=== PATIENT | female | born 1965 | race African-American/Black ===

== ENCOUNTER 2018-02-04 16:08 | Emergency (ER) | payer OTHER ==
[2018-02-04] MEDS ORDERED: Sodium Chloride 0.9% 1,000 ML IV ONE (16:52)
[2018-02-04] MEDS ORDERED: Morphine Sulfate 2 mg/mL 1mL Syr IVP ONE (16:52)
[2018-02-04 17:27] LABS: EOSINOPHILE ABSOLUTE 0.1 Th/cmm (0.1-0.4); HEMOGLOBIN 9.9 gm/dL (12-16); LYMPHOCYTE ABSOLUTE 1.4 Th/cmm (1.5-3.0); WHITE BLOOD COUNT 4.2 Th/cmm (4.8-10.8)
[2018-02-04 17:30] LABS: % BASOPHILS 0.6 % (0.0-2.0); % EOSINOPHILS 2.7 % (0.0-5.0); % LYMPHOCYTES 32.3 % (20.0-50.0); % MONOCYTES 11.2 % (2.0-10.0); % NEUTROPHILS 53.2 % (40.0-80.0); HEMATOCRIT 30.5 % (41.0-60); MEAN CELL VOLUME 79.4 fl (81-100); MEAN CORPUSCULAR HEMOGLOBIN 25.7 pg (27.0-31.0); MEAN CORPUSCULAR HGB CONC 32.4 pg (28.0-36.0); MEAN PLATELET VOLUME 8.6 fl; MONOCYTE ABSOLUTE 0.5 Th/cmm (0.3-1.0); NEUTROPHILE ABSOLUTE 2.2 Th/cmm (1.8-8.0); PLATELET COUNT 165 Th/cmm (150-400); RED BLOOD COUNT 3.84 Mil/cmm (3.80-5.10); RED CELL DISTRIBUTION WIDTH 19.7 % (11.5-20.0)
[2018-02-04] MEDS ORDERED: Morphine Sulfate 2 mg/mL 1mL Syr ONE (17:32)
--- NOTE | 2018-02-04 17:35 | ED Physician Chart ---
ED Chief Complaint/HPI - Patient Information Date Seen:: 02/04/18 Time Seen:: 16:25 Chief Complaint:: Abdominal Pain History of Present Illness:: onset x 6 days of intermittent, crampy Abd. Pain, N/V/D; pt denies trauma, H/As , S/T, neck pain, cough, C/P, SOB, A/C, fever, chills, or urinary s/s Allergies:: Allergies Allergy/AdvReac Type Severity Reaction Status Date / Time No Known Allergies Allergy Verified 02/04/18 16:25 Vitals:: Vital Signs - 8 hr 02/04/18 16:26 Temp 98.8 F HR 85 RR 16 BP 134/73 O2 Sat % 100 Historian:: Patient Review:: Nurse's Note Reviewed <Arsalan Zimmerman - Last Filed: 02/04/18 18:25> - Patient Information Allergies:: Allergies Allergy/AdvReac Type Severity Reaction Status Date / Time No Known Allergies Allergy Verified 02/04/18 16:25 Vitals:: Vital Signs - 8 hr 02/04/18 02/04/18 02/04/18 16:26 17:00 18:00 Temp 98.8 F 97.3 F 97.8 F HR 85 80 88 RR 16 16 16 BP 134/73 114/76 115/72 O2 Sat % 100 98 97 <Frankie Gomez - Last Filed: 02/04/18 19:49> ED Review of Systems - Review of Systems General/Constitutional: No fever, No chills, No weight loss, No weakness, No diaphoresis, No edema, No loss of appetite Skin: No skin lesions, No rash, No bruising Head: No headache, No light-headedness Eyes: No loss of vision, No pain, No diplopia ENT: No earache, No nasal drainage, No sore throat, No tinnitus Neck: No neck pain, No swelling, No thyromegaly, No stiffness, No mass noted Cardio Vascular: No chest pain, No palpitations, No PND, No orthopnea, No edema Pulmonary: No SOB, No cough, No sputum, No wheezing GI: Nausea, Vomiting, Diarrhea, Pain, No melena, No hematochezia, No constipation, No hematemesis G/U: No dysuria, No frequency, No hematuria, No nacturia [employer]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[employer]: No vaginal discharge, No abnormal vaginal bleed, No contraction Musculoskeletal: No bone or joint pain, No back pain, No muscle pain Endocrine: No polyuria, No polydipsia Psychiatric: No prior psych history, No depression, No anxiety, No suicidal ideation, No homicidal ideation, No auditory hallucination, No visual hallucination Hematopoietic: No bruising, No lymphadenopathy Allergic/Immuno: No urticaria, No angioedema Neurological: No syncope, No focal symptoms, No weakness, No paresthesia, No headache, No seizure, No dizziness, No confusion, No vertigo <Arsalan Zimmerman - Last Filed: 02/04/18 18:25> ED Past Medical History - Past Medical History Obtainable: Yes Past Medical History: HTN, Dyslipidemia, PUD/GERD Family History: HTN Social History: Non Smoker, No Alcohol, No Drug Use, Surgical History: Cholecystectomy, other (Gastric By-Pass Surgery) Psychiatricy History: None Medication: Reviewed <Arsalan Zimmerman - Last Filed: 02/04/18 18:25> Family Medical History - Family Member Mother History Unknown: Yes Living Status: Still Living <Arsalan Zimmerman - Last Filed: 02/04/18 18:25> ED Physical Exam - Physical Examination General/Constitutional: Awake, Well-developed, well-nourished, Alert, No distress, GCS 15, Non-toxic appearing, Ambulatory Head: Atraumatic Eyes: Lids, conjuctiva normal, PERRL, EOMI Skin: Nl inspection, No rash, No skin lesions, No ecchymosis, Well hydrated, No lymphadenopathy ENMT: External ears, nose nl, TM canals nl, Nasal exam nl, Lips, teeth, gums nl , Oropharynx nl, Tonsils nl Neck: Nontender, Full ROM w/o pain, No JVD, No nuchal rigidity, No bruit, No mass, No stridor Respiratory: Nl effort/Exclusion, Clear to Auscultation, No Wheeze/Rhonchi/Rales Cardio Vascular: RRR, No murmur, gallop, rubs, NL S1 S2, Carotid/Femoral/Distal pulses equal bilaterally GI: No tenderness/rebounding/guarding, No organomegaly, No hernia, Normal BS's, Nondistended, No mass/bruits, No McBurney tenderness : No CVA tenderness Extremities: No tenderness or effusion, Full ROM, normal strength in all extremities, No edema, Normal digits & nails Neuro/Psych: Alert/oriented, DTR's symmetric, Normal sensory exam, Normal motor strength, Judgement/insight normal, Mood normal, Normal gait, No focal deficits Misc: Normal back, No paraspinal tenderness <GabedkArsalan - Last Filed: 02/04/18 18:25> ED Labs/Radiology/EKG Results - Lab Results Comments:: Reviewed <Arsalan Zimmerman - Last Filed: 02/04/18 18:25> - Lab Results Results: Laboratory Tests 02/04/18 02/04/18 02/04/18 16:30 17:18 17:18 WBC 4.2 L RBC 3.84 Hgb 9.9 L Hct 30.5 L MCV 79.4 L MCH 25.7 L MCHC Differential 32.4 RDW 19.7 Plt Count 165 MPV 8.6 Neutrophils % 53.2 Lymphocytes % 32.3 Monocytes % 11.2 H Eosinophils % 2.7 Basophils % 0.6 PT INR Sodium 137 Potassium 4.3 Chloride 105 Carbon Dioxide 23.8 Anion Gap 12.5 BUN 18 Creatinine 1.3 H Est GFR ( Amer) 55.5 Est GFR (Non-Af Amer) 45.9 BUN/Creatinine Ratio 13.8 Glucose 89 Calcium 8.6 Total Bilirubin 0.3 AST 32 ALT 27 Alkaline Phosphatase 52 Creatine Kinase 188 B-Natriuretic Peptide Total Protein 6.6 Albumin 3.7 Globulin 2.9 Albumin/Globulin Ratio 1.3 Triglycerides 81 Cholesterol 158 LDL Cholesterol Direct 30 L HDL Cholesterol 83 Amylase 259 H Lipase 47 Serum , Qual Urine Source CLEAN C Urine Color YELLOW Urine Clarity CLEAR Urine pH 6.0 Ur Specific [place] 1.010 Urine Protein NEGATIVE Urine Glucose (UA) NEGATIVE Urine Ketones NEGATIVE Urine Blood NEGATIVE Urine Nitrate NEGATIVE Urine Bilirubin NEGATIVE Urine Urobilinogen 0.2 Ur Leukocyte Esterase NEGATIVE Urine RBC 0-2 Urine WBC 2-5 Ur Epithelial Cells FEW Urine Bacteria FEW 02/04/18 02/04/18 02/04/18 17:18 17:18 17:18 WBC RBC Hgb Hct MCV MCH MCHC Differential RDW Plt Count MPV Neutrophils % Lymphocytes % Monocytes % Eosinophils % Basophils % PT 9.9 INR 0.95 Sodium Potassium Chloride Carbon Dioxide Anion Gap BUN Creatinine Est GFR ( Amer) Est GFR (Non-Af Amer) BUN/Creatinine Ratio Glucose Calcium Total Bilirubin AST ALT Alkaline Phosphatase Creatine Kinase B-Natriuretic Peptide 43.5 Total Protein Albumin Globulin Albumin/Globulin Ratio Triglycerides Cholesterol LDL Cholesterol Direct HDL Cholesterol Amylase Lipase Serum , Qual NEGATIVE Urine Source Urine Color Urine Clarity Urine pH Ur Specific [place] Urine Protein Urine Glucose (UA) Urine Ketones Urine Blood Urine Nitrate Urine Bilirubin Urine Urobilinogen Ur Leukocyte Esterase Urine RBC Urine WBC Ur Epithelial Cells Urine Bacteria <Frankie Gomez - Last Filed: 02/04/18 19:49> ED Septic Shock - . Is Septic Shock (SBP<90, OR Lactate>4 mmol\L) present?: No - <6hrs of presentation: Vital Signs: Vital Signs - 8 hr 02/04/18 16:26 Temp 98.8 F HR 85 RR 16 BP 134/73 O2 Sat % 100 <Arsalan Zimmerman - Last Filed: 02/04/18 18:25> - <6hrs of presentation: Vital Signs: Vital Signs - 8 hr 02/04/18 02/04/18 02/04/18 16:26 17:00 18:00 Temp 98.8 F 97.3 F 97.8 F HR 85 80 88 RR 16 16 16 BP 134/73 114/76 115/72 O2 Sat % 100 98 97 <Frankie Gomez - Last Filed: 02/04/18 19:49> ED Reassessment (Disposition) - Reassessment Reassessment Condition:: Improved - Diagnosis Diagnosis:: Abdominal Pain; N/V/D; AGE; Gastroenteritis; Anemia; Pancreatitis; Leukopenia <Arsalan Zimmerman - Last Filed: 02/04/18 18:25> - Diagnosis Diagnosis:: HX OF KAMERON N Y FOR PANCREATITIS WITH ABD PAIN POSSIBLE BOWEL OBSTRUCTION - Patient Disposition Discharge/Transfer:: Acute Care w/in this hosp Admitted to:: Med/Surg Condition at Disposition:: Stable <Frankie Gomez - Last Filed: 02/04/18 19:49>
[2018-02-04 17:44] LABS: INR 0.95 (0.5-1.4); PROTHROMBIN TIME (TEST) 9.9 SECONDS (9.5-11.5)
[2018-02-04 18:14] LABS: ALB/GLOB RATIO 1.3 (1.0-1.8); ALBUMIN 3.7 gm/dL (3.7-5.3); ANION GAP 12.5 (7.0-16.0); BILIRUBIN,TOTAL 0.3 mg/dL (0.3-1.0); CALCIUM SERUM 8.6 mg/dL (8.6-10.3); CARBON DIOXIDE 23.8 mEq/L (21.0-31.0); CREATININE - SERUM 1.3 mg/dL (0.6-1.2); GFR AFRICAN-AMERICAN 55.5 ml/min (>90); GFR NON AFRICAN-AMERICAN 45.9 ml/min; POTASSIUM SERUM 4.3 mEq/L (3.5-5.1); TOTAL PROTEIN,SERUM 6.6 gm/dL (6.0-8.3)
[2018-02-04 18:49] LABS: URINE BILIRUBIN NEGATIVE (NEGATIVE); URINE BLOOD NEGATIVE (NEGATIVE); URINE GLUCOSE (UA) NEGATIVE (NEGATIVE); URINE KETONE NEGATIVE (NEGATIVE); URINE LEUKOCYTE ESTERASE NEGATIVE (NEGATIVE); URINE NITRATE NEGATIVE (NEGATIVE); URINE PROTEIN NEGATIVE (NEGATIVE); URINE SOURCE CLEAN C; URINE UROBILINOGEN 0.2 E.U./dL (0.2 - 1.0)
[2018-02-04 18:51] LABS: URINE CLARITY CLEAR (CLEAR); URINE COLOR YELLOW; URINE MICROSCOPIC INDICATED? YES
[2018-02-04 18:53] LABS: URINE RBC 0-2 /hpf (0-5)
[2018-02-04 18:54] LABS: URINE BACTERIA FEW /hpf (NONE SEEN); URINE EPITHELIAL CELLS FEW /lpf (FEW)
[2018-02-04] MEDS ORDERED: cefTRIAXone 1 GM in Sodium Chloride 0.9% 50 ML IV ONE (18:57)
[2018-02-04] MEDS ORDERED: Diatrizoate Meglumine/Diatri 30 mL Sol PO ONE (20:03)
[2018-02-04] MEDS ORDERED: Diatrizoate Meglumine/Diatri 30 mL Sol ONE (20:06)
--- NOTE | 2018-02-05 09:08 | Diagnostic Imaging Report ---
CT abdomen and pelvis without intravenous contrast Indication: Abdominal pain Comparison: None, Technique: Axial images were obtained from the lung bases to the bilateral proximal femurs without IV contrast. Coronal reconstructions were made. total DLP: 491, CTDI9.5 FINDINGS: Hypoventilatory and atelectatic changes of the lung bases are noted with subsegmental atelectasis versus scarring of the right lung base. Assessment of solid organs is limited due to lack of IV and oral contrast. Exam is also limited due to motion and lack of intra-abdominal body fat. No evidence of focal hepatic lesions. Postsurgical changes of the gastric region are noted. No focal splenic lesions. Assessment of the pancreas is limited on this examination. The adrenal glands also poorly visualized. No evidence of hydronephrosis or nephrolithiasis. Distended urinary bladder is noted. Copious stool is seen throughout the colon with gas-filled loops of bowel. The appendix is not well-visualized. Additional postsurgical changes of small bowel loops along the mid abdomen and along the left anterior abdomen are noted. No free air or free fluid. Degenerative changes lower lumbar spine are noted. IMPRESSION: Limited exam due to lack of IV and oral contrast motion, and lack of intra-abdominal body fat. Postsurgical changes of the gastric region and small bowel loops. Copious stool and gas-filled bowel, correlate clinically for constipation. Appendix is not well-visualized. Distended urinary bladder. Evidence of prior cholecystectomy.
== END 2018-02-04 20:40 | disposition left against medical advice (07) ==
LOC: ER 16:08
DX: K52.9 Noninfective gastroenteritis and colitis, unspecified (principal); D64.9 Anemia, unspecified; K85.90 Acute pancreatitis without necrosis or infection, unspecified; D72.819 Decreased white blood cell count, unspecified; I10 Essential (primary) hypertension; K21.9 Gastro-esophageal reflux disease without esophagitis; E78.5 Hyperlipidemia, unspecified; Z90.49 Acquired absence of other specified parts of digestive tract
CPT/HCPCS: 99285; 96365; 96361; 96375; 94760; 93005; 74176; 84484; 83880; 36415; 85025; 85610; 81001; 82150; 82550; 84703; 83690; 80053; 80061; J2270; J1885; J2405; J0696; J7030

== ENCOUNTER 2018-05-18 08:22 | Emergency (ER) | payer OTHER ==
[2018-05-18 08:50] LABS: URINE SOURCE CLEAN C
--- NOTE | 2018-05-18 08:50 | ED Physician Chart ---
ED Chief Complaint/HPI - Patient Information Date Seen:: 05/18/18 Time Seen:: 08:38 Chief Complaint:: LLQ pain History of Present Illness:: LLQ pain in a patient who has multiple allergies. According to [facility], she was prescribed Temazepam 15 mg DEMANDING PAIN MEDICINE. States that she has last passed gas from below on 04/28 and last had a BM on . Allergies:: Allergies Allergy/AdvReac Type Severity Reaction Status Date / Time dicyclomine [From Bentyl] Allergy Verified 05/18/18 08:38 fentanyl Allergy Verified 05/18/18 08:38 ibuprofen [From Motrin] Allergy Verified 05/18/18 08:38 ketorolac [From Toradol] Allergy Verified 05/18/18 08:38 Vitals:: Vital Signs - 8 hr 05/18/18 08:38 Temp 98.4 F HR 78 RR 16 BP 129/72 O2 Sat % 98 Historian:: Patient Review:: Nurse's Note Reviewed ED Review of Systems - Review of Systems General/Constitutional: No fever, No chills, No weight loss, No weakness, No diaphoresis, No edema, No loss of appetite Skin: No skin lesions, No rash, No bruising Head: No headache, No light-headedness Eyes: No loss of vision, No pain, No diplopia ENT: No earache, No nasal drainage, No sore throat, No tinnitus Neck: No neck pain, No swelling, No thyromegaly, No stiffness, No mass noted Cardio Vascular: No chest pain, No palpitations, No PND, No orthopnea, No edema Pulmonary: No SOB, No cough, No sputum, No wheezing GI: No nausea, No vomiting, No diarrhea, Pain, No melena, No hematochezia, No constipation, No hematemesis G/U: No dysuria, No frequency, No hematuria Musculoskeletal: No bone or joint pain, No back pain, No muscle pain Endocrine: No polyuria, No polydipsia Psychiatric: No prior psych history, No depression, No anxiety, No suicidal ideation Hematopoietic: No bruising, No lymphadenopathy Allergic/Immuno: No urticaria, No angioedema Neurological: No syncope, No focal symptoms, No weakness, No paresthesia, No headache, No seizure, No dizziness, No confusion, No vertigo ED Past Medical History - Past Medical History Obtainable: Yes Past Medical History: Other (gastric bypass; chronic pain) Family Medical History - Family Member Mother History Unknown: Yes Living Status: Still Living ED Physical Exam - Physical Examination General/Constitutional: Awake, Well-developed, well-nourished, Alert, No distress, GCS 15, Non-toxic appearing, Ambulatory Head: Atraumatic Eyes: Lids, conjuctiva normal, PERRL, EOMI Skin: Nl inspection, Well hydrated Other Skin comments:: bruising RUE ENMT: External ears, nose nl, Nasal exam nl, Lips, teeth, gums nl, Oropharynx nl Neck: Nontender, No nuchal rigidity, No stridor Respiratory: Nl effort/Exclusion, Clear to Auscultation, No Wheeze/Rhonchi/Rales Cardio Vascular: RRR, No murmur, gallop, rubs, NL S1 S2 GI: No tenderness/rebounding/guarding, No organomegaly, No hernia, Normal BS's, Nondistended, No mass/bruits, No McBurney tenderness Other GI comments:: midline : No CVA tenderness Extremities: No tenderness or effusion, Full ROM, normal strength in all extremities, No edema, Normal digits & nails Neuro/Psych: Alert/oriented, Normal sensory exam, Normal motor strength, Judgement/insight normal, Mood normal, Normal gait, No focal deficits Other Neuro/Psych comments:: whining for pain medicine. Misc: Normal back, No paraspinal tenderness ED Assessment - Assessment General Assessment: patient whined for pain medicine here. Was shown her [facility] print out. Wanted a copy of it. decided to leave since she was not going to get her pain medicine. ED Septic Shock - . Is Septic Shock (SBP<90, OR Lactate>4 mmol\L) present?: No - <6hrs of presentation: Vital Signs: Vital Signs - 8 hr 05/18/18 08:38 Temp 98.4 F HR 78 RR 16 BP 129/72 O2 Sat % 98 ED Reassessment (Disposition) - Reassessment Reassessment Condition:: Unchanged - Diagnosis Diagnosis:: Drug seeking behavior Chronic pain Opiate abuse Cannabis use - Patient Disposition Discharge/Transfer:: Elope/AWOL Condition at Disposition:: Stable, Unchanged
[2018-05-18 08:54] LABS: URINE BILIRUBIN NEGATIVE (NEGATIVE); URINE BLOOD NEGATIVE (NEGATIVE); URINE GLUCOSE (UA) NEGATIVE (NEGATIVE); URINE KETONE NEGATIVE (NEGATIVE); URINE LEUKOCYTE ESTERASE NEGATIVE (NEGATIVE); URINE NITRATE NEGATIVE (NEGATIVE); URINE PROTEIN NEGATIVE (NEGATIVE); URINE UROBILINOGEN 0.2 E.U./dL (0.2 - 1.0)
[2018-05-18 08:59] LABS: URINE COLOR YELLOW
[2018-05-18 09:00] LABS: URINE CLARITY CLEAR (CLEAR); URINE MICROSCOPIC INDICATED? NO
[2018-05-18 09:15] LABS: AMPHETAMINE URINE NEGATIVE (NEGATIVE); BARBITURATES URINE NEGATIVE (NEGATIVE); BENZODIAZEPINES QUAL URINE NEGATIVE (NEGATIVE); CANNABINOID THC POSITIVE (NEGATIVE); COCAINE METABOLITE QUAL URINE NEGATIVE (NEGATIVE); METHADONE URINE NEGATIVE (NEGATIVE); METHAMPHETAMINES QUAL URINE NEGATIVE (NEGATIVE); OPIATES (MORPHINE) QUAL. URINE POSITIVE (NEGATIVE); PHENCYCLIDINE (PCP) URINE NEGATIVE (NEGATIVE); TRICYCLICS (TCA) QUAL. URINE NEGATIVE (NEGATIVE)
== END 2018-05-18 09:15 | disposition left against medical advice (07) ==
LOC: ER 08:22
DX: G89.29 Other chronic pain (principal); R10.32 Left lower quadrant pain; F11.10 Opioid abuse, uncomplicated; F12.90 Cannabis use, unspecified, uncomplicated; Z72.89 Other problems related to lifestyle; Z88.6 Allergy status to analgesic agent; Z88.5 Allergy status to narcotic agent; Z88.8 Allergy status to other drugs, medicaments and biological substances
CPT/HCPCS: 99283; 80307; 81003; 81025 ×2; Q0162; Z7502